=== PATIENT | female | born 1955 | race Caucasian/White ===

== ENCOUNTER 2018-01-27 12:56 | Emergency (ER) | payer MEDICAID, SELFPAY ==
[2018-01-27 13:03] VITALS: BP 105/89; PULSE 105; RESP 18; TEMP 37.4
[2018-01-27 13:42] LABS: HCT 35.3 % (36.0-46.0); HGB 11.8 g/dL (12.0-15.5); Mean Corp. HGB Concentration 33.4 g/dL (32.0-36.0); Mean Corpuscular Hemoglobin 29.8 pg (27.0-33.0); Mean Corpuscular Volume 89.1 fL (80-95); Mean Platelet Volume 9.1 fL (8.0-11.0); Platelet Count 252 x1000/uL (130-400); RBC 3.96 m/cumm (4.00-5.20); RBC Distribution Width 12.9 % (11.7-14.6)
[2018-01-27 13:52] VITALS: TEMP 37.3
[2018-01-27 13:53] LABS: BUN 11 mg/dL (7-18); CREATININE 0.99 mg/dL (0.55-1.02); Calcium 9.1 mg/dL (8.5-10.1); Chloride 99 mmol/L (98-107); Estimated GFR 56.84 (mL/min/1.73m2); Glucose 121 mg/dL (70-100); Potassium 3.2 mmol/L (3.5-5.1); Sodium 138 mmol/L (136-145)
[2018-01-27 14:05] LABS: Bilirubin Small (Negative); Blood Small (Negative); Clarity Cloudy; Glucose Negative (Negative); Ketones Negative (Negative); Leukocyte Esterase Moderate (Negative); Nitrite Positive (Negative); Specific Gravity 1.015 (1.005-1.025)
--- NOTE | 2018-01-27 14:22 | DI.CT_ITS ---
SYMPTOMS/DIAGNOSIS: ABDOMINAL PAIN WITH UTI AND EA CT SCAN OF THE ABDOMEN AND PELVIS: CT scan of the abdomen and pelvis was performed without intravenous or oral contrast material. Dependent atelectatic changes are seen in the lung bases. Lack of IV contrast does limit evaluation of the abdominal organs. There is a 2.9 x 2.3 cm round hypodense lesion in the posterior segment of the right lobe of the liver. It is indeterminate on this noncontrast examination. The liver is otherwise unremarkable. The gallbladder is negative. No biliary ductal dilatation is present. The unenhanced visualized portions of the spleen, pancreas and adrenal glands are unremarkable. The right kidney appears mildly enlarged. There is dilatation of the collecting system in its entirety. No stone is identified. There is a vascular calcification seen superior to the right renal pelvis. Stranding is seen around the kidney in the perinephric soft tissues. The left kidney also shows mild dilatation of the collecting system without stone. Mild stranding in the perinephric soft tissues is also noted. The urinary bladder is intact. The patient appears to be status post hysterectomy. The abdominal aorta is of normal caliber. No significant abdominal or pelvic adenopathy, ascites or pneumoperitoneum is seen. Note is made of a small fat- containing umbilical hernia. The bowel shows no evidence of obstruction or inflammation. No findings to suggest an acute appendicitis are present. Degenerative changes are seen in the spine. IMPRESSION: 1. Bilateral perinephric stranding and dilatation of the collecting systems. The primary diagnostic concern is for an ascending infection. Pyelonephritis cannot be excluded and should be considered. 2. A 2.9 cm round hypodense lesion in the posterior segment of the right lobe of the liver. The finding is indeterminate on this CT scan. Ultrasound may be considered for further evaluation. These findings were discussed with Dr. Marissa Sinha on the date of the examination.
[2018-01-27 14:23] LABS: C & S Indicated? Yes
[2018-01-27 14:24] LABS: WBC >50 HPF (0-5)
--- NOTE | 2018-01-27 14:28 | W.ED.GENAD ---
Medical Decision Making Urine is positive nitrite with WBC and bacteria. Will treat as uti with early pylo. Plan to establish IV and give Cipro IV and CT abdomen to evaluate for pylo and/or renal colic. Will give phenergan instead of Zofran do to the interaction with Cipro. Will give Toradol for pain. CT report given to Dr. Sinha. Reported to her was Pylonephritis, no stones. Incidental liver cyst noted and f/u recommended. I did apprise her of the liver cyst and recommended f/u. Her current PCP is in [facility]. She does ask to be put on local PCP list as she has moved to [place]. I advised if she wanted the live U/S sooner she should return to her current pcp. She would take it under advisement. I apprised her of the infection and the course of antibiotics needed. I did prescribe her Cipro and phenergan. I advised to return to ED if symptoms worsen and/or she can not keep antibiotics down. She agreed with POC. She reports to me she is feeling a little better after fluids and medications. HPI General Mode of arrival: ambulatory. Date/Time Provider Initiated Documentation: 01/27/18 13:12. Limitations to Documentation: no limitations. Information obtained by: patient. History of Present Illness 62 year old F presents to the emergency department with the chief complaint of UTI, described as moderate, Quality is described as burning and aching, and is localized to the back and abdomen (started 4 days ago. noticed mild back pain a day or two prior to that. Thought she may have a uti or stone. She also has cramping in the lower abdomen upper pelvis area. ). Patient reports no radiation. Patient started experiencing this day(s) (4) and it has been constant (diffuse over all of abdomen) and intermittent (cramping). No relieving factors improve symptom(s), No exacerbating factors reported . Patient notes fever/chills, headaches and nausea/vomiting. Patient did receive the following treatments prior to arrival, none Related Data Home Medications Medication Instructions Recorded Confirmed bupropion HCl 1 tab PO BID 01/27/18 01/27/18 ciprofloxacin HCl [Cipro] 500 mg PO BID #14 tab 01/27/18 lisinopril-hydrochlorothiazide 1 tab PO DAILY 09/24/18 09/24/18 lorazepam 1 mg PO DAILY 01/27/18 01/27/18 promethazine 12.5 mg PO Q6H PRN #10 tab 01/27/18 Previous Rx's Medication Instructions Recorded ciprofloxacin HCl [Cipro] 500 mg PO BID #14 tab 01/27/18 promethazine 12.5 mg PO Q6H PRN #10 tab 01/27/18 Allergies Allergy/AdvReac Type Severity Reaction Status Date / Time latex Allergy Unverified 01/27/18 15:48 Sulfa (Sulfonamide Allergy Unverified 01/27/18 15:48 Antibiotics) General Stated Complaint: Abd Prob MARIELENA: 3 Review of Systems Review of Systems Started with back pain and dysuria. Worsened to fever, chills, N/V, and abdominal pain. ENT Reports system reviewed and no additional complaints, except as docu Comments: Neck pain Cardiovascular Reports system reviewed and no additional complaints, except as docu Respiratory Reports system reviewed and no additional complaints, except as docu Gastrointestinal Reports abdominal pain, Denies melena, Denies bloating, Denies hematochezia, Reports change in bowel habits, Denies change in stool character, Denies coffee ground emesis, Reports constipation, Reports cramping, Denies diarrhea and Reports vomiting Genitourinary Denies hematuria, Reports dysuria, Reports pelvic pain and Reports flank pain Musculoskeletal Reports back pain Neurologic Reports system reviewed and no additional complaints, except as docu Psychiatric Reports system reviewed and no additional complaints, except as docu PFSH Social History Smoking/Tobacco Use Status: Never Exam [facility] Head: normal to inspection Ears: hearing grossly normal bilaterally General nose exam: external nose normal Mouth: moist mucous membranes Eyes General: appearance normal, both eyes and all related structures Neck Neck: normal visual inspection, full ROM, no lymphadenopathy, no meningeal signs, trachea midline and supple Resp Effort & Inspection: normal respiratory effort Auscultation: clear to auscultation bilaterally Cardio Jugular venous pressure: no JVD Rate: tachycardic Rhythm: regular rhythm Heart Sounds: S1 normal and S2 normal GI Inspection: normal to inspection and non-distended Palpation: soft and no hepatosplenomegaly Auscultation: normal bowel sounds General: No CVA tenderness Back/Spine/Pelvis Back: no CVA tenderness Skin General skin exam: turgor normal Neuro General: alert, awake, oriented x3 and gait normal Cognition: normal cognition Speech: speech normal Motor: muscle tone normal throughout Extrem General: normal to inspection Psych Appearance: grossly normal and well kempt Mental Status: mental status grossly normal Affect: normal affect Attitude: cooperative Course Vital Signs Temperature 37.4 C 01/27/18 13:03 Pulse 105 H 01/27/18 13:03 Respiratory Rate 18 01/27/18 13:03 Blood Pressure 105/89 01/27/18 13:03 Temperature 37.3 C 01/27/18 13:52 Temperature Source Temporal Artery Scan 01/27/18 13:52 Pulse 105 H 01/27/18 13:03 Respiratory Rate 18 01/27/18 13:03 Blood Pressure 105/89 01/27/18 13:03 Oxygen Delivery Method Room Air 01/27/18 13:03 Oxygen Flow Rate 0 01/27/18 13:03 Lab/Test Results Lab/Test Results: 01/27/18 13:30 Urine - Clean Catch Urine Culture - Pending Laboratory Tests Range/Units 01/27/18 01/27/18 01/27/18 13:24 13:24 13:30 WBC (4.4-10.8) k/cumm 12.40 H RBC (4.00-5.20) m/cumm 3.96 L Hgb (12.0-15.5) g/dL 11.8 L Hct (36.0-46.0) % 35.3 L MCV (80-95) fL 89.1 MCH (27.0-33.0) pg 29.8 MCHC (32.0-36.0) g/dL 33.4 RDW (11.7-14.6) % 12.9 Plt Count (130-400) x1000/uL 252 MPV (8.0-11.0) fL 9.1 Sodium (136-145) mmol/L 138 Potassium (3.5-5.1) mmol/L 3.2 L Chloride (98-107) mmol/L 99 Carbon Dioxide (21.0-32.0) mmol/L 29.0 Anion Gap (3-11) mmol/L 10.0 BUN (7-18) mg/dL 11 Creatinine (0.55-1.02) mg/dL 0.99 Estimated GFR/1.73 m2 (mL/min/1.73m2) 56.84 Glucose (70-100) mg/dL 121 H Calcium (8.5-10.1) mg/dL 9.1 Urine Color (Yellow) [place] Urine Clarity Cloudy Urine pH (5-8) 6.0 Ur Specific [place] (1.005-1.025) 1.015 Urine Protein (Negative) mg/dL 100 H Urine Ketones (Negative) mg/dL Negative Urine Blood (Negative) Small H Urine Nitrite (Negative) Positive H Urine Bilirubin (Negative) Small H Urine Urobilinogen (Up TO 0.2) EU/dL 4.0 H Ur Leukocyte Esterase (Negative) Moderate H Urine RBC Not Applicable Urine WBC (0-5) HPF >50 Ur Epithelial Cells Not Applicable Urine Crystals Not Applicable Urine Bacteria Not Applicable Urine Mucus Not Applicable Ur Culture Indicated? Yes Urine Glucose (Negative) mg/dL Negative Reviewed and patient treated for uti.
[2018-01-27] MEDS: CIPROFLOXACIN 400 MG/200 ML BAG 200 MG IVPB (14:56)
[2018-01-27] MEDS: Normal Saline 1,000 ML 1000 ML IV (14:56)
--- NOTE | 2018-01-27 14:59 | ED.GENADUL_ITS ---
Medical Decision Making Urine is positive nitrite with WBC and bacteria. Will treat as uti with early pylo. Plan to establish IV and give Cipro IV and CT abdomen to evaluate for pylo and/or renal colic. Will give phenergan instead of Zofran do to the interaction with Cipro. Will give Toradol for pain. CT report given to Dr. Sinha. Reported to her was Pylonephritis, no stones. Incidental liver cyst noted and f/u recommended. I did apprise her of the liver cyst and recommended f/u. Her current PCP is in [facility]. She does ask to be put on local PCP list as she has moved to [place]. I advised if she wanted the live U/S sooner she should return to her current pcp. She would take it under advisement. I apprised her of the infection and the course of antibiotics needed. I did prescribe her Cipro and phenergan. I advised to return to ED if symptoms worsen and/or she can not keep antibiotics down. She agreed with POC. She reports to me she is feeling a little better after fluids and medications. HPI General Mode of arrival: ambulatory . Date/Time Provider Initiated Documentation: 01/27/18 13:12 . Limitations to Documentation: no limitations . Information obtained by: patient . History of Present Illness 62 year old F presents to the emergency department with the chief complaint of UTI, described as moderate, Quality is described as burning and aching, and is localized to the back and abdomen (started 4 days ago. noticed mild back pain a day or two prior to that. Thought she may have a uti or stone. She also has cramping in the lower abdomen upper pelvis area. ). Patient reports no radiation. Patient started experiencing this day(s) (4) and it has been constant (diffuse over all of abdomen) and intermittent (cramping). No relieving factors improve symptom(s), No exacerbating factors reported . Patient notes fever/chills, headaches and nausea/vomiting. Patient did receive the following treatments prior to arrival, none Related Data Home Medications Medication Instructions Recorded Confirmed bupropion HCl 1 tab PO BID 01/27/18 01/27/18 ciprofloxacin HCl [Cipro] 500 mg PO BID #14 tab 01/27/18 lisinopril-hydrochlorothiazide 1 tab PO DAILY 09/24/18 09/24/18 lorazepam 1 mg PO DAILY 01/27/18 01/27/18 promethazine 12.5 mg PO Q6H PRN #10 tab 01/27/18 Previous Rx's Medication Instructions Recorded ciprofloxacin HCl [Cipro] 500 mg PO BID #14 tab 01/27/18 promethazine 12.5 mg PO Q6H PRN #10 tab 01/27/18 Allergies Allergy/AdvReac Type Severity Reaction Status Date / Time latex Allergy Unverified 01/27/18 15:48 Sulfa (Sulfonamide Allergy Unverified 01/27/18 15:48 Antibiotics) General Stated Complaint: Abd Prob MARIELENA: 3 Review of Systems Review of Systems Started with back pain and dysuria. Worsened to fever, chills, N/V, and abdominal pain. ENT Reports system reviewed and no additional complaints, except as docu Comments: Neck pain Cardiovascular Reports system reviewed and no additional complaints, except as docu Respiratory Reports system reviewed and no additional complaints, except as docu Gastrointestinal Reports abdominal pain, Denies melena, Denies bloating, Denies hematochezia, Reports change in bowel habits, Denies change in stool character, Denies coffee ground emesis, Reports constipation, Reports cramping, Denies diarrhea and Reports vomiting Genitourinary Denies hematuria, Reports dysuria, Reports pelvic pain and Reports flank pain Musculoskeletal Reports back pain Neurologic Reports system reviewed and no additional complaints, except as docu Psychiatric Reports system reviewed and no additional complaints, except as docu PFSH Social History Smoking/Tobacco Use Status: Never Exam [facility] Head: normal to inspection Ears: hearing grossly normal bilaterally General nose exam: external nose normal Mouth: moist mucous membranes Eyes General: appearance normal, both eyes and all related structures Neck Neck: normal visual inspection, full ROM, no lymphadenopathy, no meningeal signs , trachea midline and supple Resp Effort & Inspection: normal respiratory effort Auscultation: clear to auscultation bilaterally Cardio Jugular venous pressure: no JVD Rate: tachycardic Rhythm: regular rhythm Heart Sounds: S1 normal and S2 normal GI Inspection: normal to inspection and non-distended Palpation: soft and no hepatosplenomegaly Auscultation: normal bowel sounds General: No CVA tenderness Back/Spine/Pelvis Back: no CVA tenderness Skin General skin exam: turgor normal Neuro General: alert, awake, oriented x3 and gait normal Cognition: normal cognition Speech: speech normal Motor: muscle tone normal throughout Extrem General: normal to inspection Psych Appearance: grossly normal and well kempt Mental Status: mental status grossly normal Affect: normal affect Attitude: cooperative Course Vital Signs Temperature 37.4 C 01/27/18 13:03 Pulse 105 H 01/27/18 13:03 Respiratory Rate 18 01/27/18 13:03 Blood Pressure 105/89 01/27/18 13:03 Temperature 37.3 C 01/27/18 13:52 Temperature Source Temporal Artery Scan 01/27/18 13:52 Pulse 105 H 01/27/18 13:03 Respiratory Rate 18 01/27/18 13:03 Blood Pressure 105/89 01/27/18 13:03 Oxygen Delivery Method Room Air 01/27/18 13:03 Oxygen Flow Rate 0 01/27/18 13:03 Lab/Test Results Lab/Test Results: 01/27/18 13:30 Urine - Clean Catch Urine Culture - Pending Laboratory Tests Range/Units 01/27/18 01/27/18 01/27/18 13:24 13:24 13:30 WBC (4.4-10.8) k/cumm 12.40 H RBC (4.00-5.20) m/cumm 3.96 L Hgb (12.0-15.5) g/dL 11.8 L Hct (36.0-46.0) % 35.3 L MCV (80-95) fL 89.1 MCH (27.0-33.0) pg 29.8 MCHC (32.0-36.0) g/dL 33.4 RDW (11.7-14.6) % 12.9 Plt Count (130-400) x1000/uL 252 MPV (8.0-11.0) fL 9.1 Sodium (136-145) mmol/L 138 Potassium (3.5-5.1) mmol/L 3.2 L Chloride (98-107) mmol/L 99 Carbon Dioxide (21.0-32.0) mmol/L 29.0 Anion Gap (3-11) mmol/L 10.0 BUN (7-18) mg/dL 11 Creatinine (0.55-1.02) mg/dL 0.99 Estimated GFR/1.73 m2 (mL/min/1.73m2) 56.84 Glucose (70-100) mg/dL 121 H Calcium (8.5-10.1) mg/dL 9.1 Urine Color (Yellow) [place] Urine Clarity Cloudy Urine pH (5-8) 6.0 Ur Specific [place] (1.005-1.025) 1.015 Urine Protein (Negative) mg/dL 100 H Urine Ketones (Negative) mg/dL Negative Urine Blood (Negative) Small H Urine Nitrite (Negative) Positive H Urine Bilirubin (Negative) Small H Urine Urobilinogen (Up TO 0.2) EU/dL 4.0 H Ur Leukocyte Esterase (Negative) Moderate H Urine RBC Not Applicable Urine WBC (0-5) HPF >50 Ur Epithelial Cells Not Applicable Urine Crystals Not Applicable Urine Bacteria Not Applicable Urine Mucus Not Applicable Ur Culture Indicated? Yes Urine Glucose (Negative) mg/dL Negative Reviewed and patient treated for uti.
[2018-01-27 15:46] VITALS: BP 115/57; PULSE 89; RESP 16; TEMP 36.2; O2SAT 98
[2018-01-27] MEDS: Ketorolac 30 MG/ML VIAL IVP (15:57)
[2018-01-27 16:37] VITALS: BP 115/57; PULSE 89; RESP 16; TEMP 36.2; O2SAT 98
--- NOTE | 2018-01-28 09:01 | PDOC.ERCMPRO ---
Care Management Progress Note 01/28/18-Pt seen on 01/27/18 for UTI by Jon Molina DNP . Pt is new to the area. Referral faxed to [facility] as Rickey Camara was interface control officer for Pt to establish a PCP.
--- NOTE | 2018-01-28 09:02 | CMPROGNOTE_ITS ---
Care Management Progress Note 01/28/18-Pt seen on 01/27/18 for UTI by Jon Molina DNP . Pt is new to the area. Referral faxed to [facility] as Rickey Camara was air pollution engineer for Pt to establish a PCP.
== END 2018-01-27 16:42 | disposition home or self-care (01) ==
PROVIDERS: Emergency Provider Nurse Practitioner Family; PCP Family Medicine
DX: N10 Acute pyelonephritis (principal); B96.20 Unspecified Escherichia coli [E. coli] as the cause of diseases classified elsewhere
CPT/HCPCS: 36415; 80048; 85027; 87077; 96361; 96365; 96366; 96368; 96374; 99284; 74176; 81003; 81015; 87086; 87186; 99285; J0744; J1885

== ENCOUNTER 2019-10-27 09:11 | Outpatient (CLI) | payer OTHER, SELFPAY ==
[2019-10-28 02:51] LABS: COVID-19 RT-PCR UVMMC Result Negative (Negative)
== END 2019-10-27 09:31 ==
PROVIDERS: PCP Family Medicine; Visit Provider Family Medicine
DX: Z11.59 Encounter for screening for other viral diseases (principal)
CPT/HCPCS: U0003

== ENCOUNTER 2020-02-25 02:15 | Outpatient (CLI) | payer OTHER, SELFPAY ==
--- NOTE | 2020-02-25 07:45 | DI.MRI_ITS ---
EXAM: MR LOWER JOINT RT WO CLINICAL HISTORY: RT KNEE PAIN, TEAR LATERAL MENISCUS, [id number]. TECHNIQUE: Multiplanar multisequence MRI was performed. CR RT. KNEE from 11/19/2006 CR [id number] from 02/17/2019 FINDINGS: There is a small joint effusion and small Mario's cyst. There is edema in the prepatellar region. T here is no evidence of fracture or bone contusion. Anterior cruciate ligament is torn near the femora l attachment. This is present on the previous exam from 2006. The posterior cruciate ligament appears intact. There is edema around the lateral collateral ligament at the fibular attachment as well as s ome high signal in the distal hamstring tendon. The IT band and popliteus tendon appear intact. The m edial collateral ligament appears intact. There is spurring from the lateral femoral condyle and late ral tibial plateau. Both menisci are somewhat peripherally displaced, consistent with degenerative ch anges. There is some high signal in the body of the lateral meniscus at the periphery. There is some cartilage thinning and irregularity of the lateral femoral condyle cartilage. The patella is normally aligned. There is no patellofemoral cartilage thinning or focal defect. IMPRESSION: Sprains of the distal hamstring tendon and lateral collateral ligaments. Old ACL tear. Tear at the pe riphery of the body of the lateral meniscus. Mario's cyst. DATA REPOSITORY:
== END 2020-02-25 02:35 ==
PROVIDERS: PCP Family Medicine; Visit Provider Student in an Organized Health Care Education/Training Program
DX: S83.421A Sprain of lateral collateral ligament of right knee, initial encounter (principal); S83.261A Peripheral tear of lateral meniscus, current injury, right knee, initial encounter
CPT/HCPCS: 73721

== ENCOUNTER → 2020-04-11 13:28 | Outpatient (BNVA) | payer MEDICARE, OTHER, SELFPAY | PROVIDERS: PCP Family Medicine; Referring Provider Family Medicine; Visit Provider Student in an Organized Health Care Education/Training Program | DX: S83.281D Other tear of lateral meniscus, current injury, right knee, subsequent encounter (principal); X58.XXXD Exposure to other specified factors, subsequent encounter; I10 Essential (primary) hypertension | CPT/HCPCS: 99214 ==

== ENCOUNTER 2020-04-15 03:48 | Outpatient (CLI) | payer MEDICARE, OTHER, SELFPAY ==
[2020-04-17 16:51] LABS: COVID-19 RT-PCR Result NEGATIVE (Negative)
== END 2020-04-15 04:08 ==
PROVIDERS: PCP Family Medicine; Visit Provider Student in an Organized Health Care Education/Training Program
DX: Z11.59 Encounter for screening for other viral diseases (principal); Z01.818 Encounter for other preprocedural examination
CPT/HCPCS: U0003

== ENCOUNTER 2020-04-19 05:59 | Day surgery (SDC) | payer MEDICARE, OTHER, SELFPAY ==
[2020-04-19] VITALS (7 sets, daily range): BP systolic 129–142; BP diastolic 58–89; PULSE 68–79; RESP 8–22; TEMP 36.1–36.6; O2SAT 97–100
[2020-04-19] MEDS: Lactated Ringers 1,000 ML 80 ML IV (06:50)
[2020-04-19] MEDS: Celecoxib 200 MG CAP 400 MG PO (07:00)
[2020-04-19] MEDS: Acetaminophen 500 MG TAB 1000 MG PO (07:00)
[2020-04-19] MEDS: ceFAZolin 2 GM/50 ML BAG IVPB (07:30)
--- NOTE | 2020-04-19 07:43 | PDOC.DSDIS_ITS ---
Discharge Plan Disposition Patient Disposition: HOME Condition: Good Discharge Details Reason For Visit: Right knee arthroscopy Attending Provider: Geovanny Gutierrez Primary Care Provider: Heike Graham Home Meds and New Rx's Prescriptions: New hydrocodone-acetaminophen 5-325 mg tablet 1 tab PO Q6H PRN (Reason: pain) Qty: 10 RF: 0 ibuprofen 600 mg tablet 600 mg PO TID PRN (Reason: pain) Qty: 30 RF: 0 acetaminophen 500 mg capsule 500 mg PO Q4H PRN (Reason: pain) Qty: 30 RF: 0 Continued hydroxyzine HCl 25 mg tablet 25 mg PO QHS RF: 0 hydrochlorothiazide 25 mg tablet 25 mg PO DAILY RF: 0 magnesium glycinate 100 mg tablet 400 mg PO BID RF: 0 cholecalciferol (vitamin D3) 50 mcg (2,000 unit) capsule 50 mcg PO DAILY RF: 0 calcium citrate 200 mg (950 mg) tablet 200 mg PO DAILY RF: 0 (DME) Raised Toilet Seat See Rx Instructions .ROUTE .MEDSUPPLY Qty: 1 RF: 0 bupropion HCl 100 mg Tablet 1 tab PO BID RF: 0 lorazepam 1 mg Tablet 1 mg PO DAILY RF: 0 Discontinued naproxen 500 mg tablet 500 mg PO BID RF: 0 Discharge Instructions Stand Alone Forms: [facility] Knee Arthroscopy Referrals: Geovanny Gutierrez MD [ [facility] STAFF PHYSICIAN] - Equipment/Supplies: Partial Weight Bearing Crutches Activity:: Activity as Tolerated Remove Dressings/Wound Care:: 72 hours Shower/Bathe:: 72 hours Diet:: As Tolerated Discharge Orders Discharge Orders: Discharge Order (Routine); Ordered 04/19/20 Ordered By: Prasad Beck DS: Diagnosis Discharge Diagnosis (1) Tear of lateral meniscus of right knee, current: Status: Acute
[2020-04-19] MEDS: EPINEPHrine 30 MG/30 ML VIAL (07:55)
[2020-04-19] MEDS: Bupivacaine 0.5% Pres-Free 30 ML VIAL (07:56)
[2020-04-19] MEDS: HYDROcodone 5/Acetaminophen 325 TAB PO ×2 (09:05→10:06)
--- NOTE | 2020-04-19 15:13 | W.PM.OP ---
Date of service: 04/19/20 Time of Service: 08:13 Operative Note Operative Note DATE OF PROCEDURE: 04/19/20 PRE-OP DIAGNOSIS: Right Lateral Meniscus Tear POST-OP DIAGNOSIS: same PROCEDURE: Arthroscopic Partial Lateral Menisectomy - Right Knee SURGEON: Geovanny Gutierrez ANESTHESIA: GETA ESTIMATED BLOOD LOSS: 0 PATHOLOGY: none sent TOURNIQUET TIME: 0 COMPLICATIONS: None Patient was transported to: PACU Patient's condition: stable Indications: I have seen Nazanin in clinic for symptoms of a meniscus tear. This was confirmed based on MRI and exam findings. Nonoperative measures were exhausted but disability and pain persisted. I discussed knee arthroscopy with meniscal intervention with the patient. I reviewed the risks of the procedure to include, but not limited to, bleeding, infection, pain, stiffness, damage to nerves or vessels, recurrence, blood clot. Despite these risks, the patient elected to proceed. 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 The consent was reviewed with the patient and signed. The history and physical was updated. All questions were answered. She was taken back to the operating room. The patient was placed into the supine position on the operating room table. A nonsterile tourniquet was placed high onto the leg but not used. All bony prominences were well padded. Prophylactic antibiotics in the form of Cefazolin were administered. The right leg was then prepped with Chloraprep and draped in a standard fashion with stockinette and extremity drape. A timeout to confirm correct identity, side and site, procedure, allergies, anesthesia, and medical concerns was performed. The leg was placed into a pneumatic leg espinal, [id number]. A standard lateral portal was made at the lateral border of the patella tendon in line with the inferior pole of the patella, soft spot. The skin and deep tissue was incised sharply and the blunt trochar was inserted atraumatically. A diagnostic arthroscopy was performed and the findings are listed above. The suprapatellar pouch had no significant inflammatory change. The patellofemoral articulation showed minimal chondral damage of the trochlea as well as good tracking. The lateral gutter had no loose bodies and the medial gutter had no loose bodies. The knee was brought into some valgus stress in extension to open the medial compartment. A medial portal was made, localized by a spinal needle. The portal was created with an #11 blade through skin and capsule under direct visualization avoiding any meniscal injury. A probe was then inserted into the medial compartment. The medial compartment was fully inspected. There was no significant cartilage damage in the medial compartment. The medial meniscus had no meniscal tear. The notch was then inspected which showed a torn ACL and an intact PCL. The leg was then brought into a figure of 4 position. The lateral compartment was fully inspected with the arthroscope and a probe. The chondral surface of the tibia showed minimal chondromalacia and the surface of the femur showed Grade II chondromalacia with some fissuring (focal Grade III). The lateral meniscus had a complex meniscal tear with a significant horizontal component with displacement. After evaluation, the meniscus was debrided down to a stable base using a series of biters and arthroscopic yaritza. It was probed afterwards to confirm that the tear had been removed and the meniscus was stable. The arthroscope was brought back into the suprapatellar pouch and the leg was in full extension. The knee was thoroughly irrigated with the arthroscopic fluid on high flow and pressure. Inflow was stopped and excess fluid was removed. The wounds were closed with 4-0 Nylon. They were dressed with Xeroform, 4x4 gauze, ABD pad, Kerlix and an MOJGAN wrap. A cryo-cuff was applied. The patient tolerated the procedure well and was returned to the Same Day Surgery area in a stable condition suffering no known complication.
== END 2020-04-19 11:18 | disposition home or self-care (01) ==
PROVIDERS: PCP Family Medicine; Visit Provider Student in an Organized Health Care Education/Training Program
PROC: (CPT 29870; principal; 2020-04-19 07:30)
DX: M23.261 Derangement of other lateral meniscus due to old tear or injury, right knee (principal); M94.261 Chondromalacia, right knee
CPT/HCPCS: 29881; E0114; J0131; J0690; J1100; J1200; J1885; J2001; J2250; J2405

== ENCOUNTER → 2020-06-20 13:09 | Outpatient (BNVA) | payer MEDICARE, OTHER, SELFPAY | PROVIDERS: PCP Family Medicine; Referring Provider Family Medicine; Visit Provider Student in an Organized Health Care Education/Training Program | DX: Z47.89 Encounter for other orthopedic aftercare (principal) ==

== ENCOUNTER → 2020-08-08 13:10 | Outpatient (BNVA) | payer MEDICARE, OTHER, SELFPAY | PROVIDERS: PCP Family Medicine; Referring Provider Family Medicine; Visit Provider Student in an Organized Health Care Education/Training Program | DX: Z47.89 Encounter for other orthopedic aftercare (principal); M25.561 Pain in right knee | CPT/HCPCS: 20610; J1040 ==

== ENCOUNTER 2020-11-03 10:40 | Outpatient (CLI) | payer MEDICARE, OTHER, SELFPAY ==
--- NOTE | 2020-11-03 08:30 | DI.RAD_ITS ---
Exam(s) XR KNEE RT 4V AP,LAT,ISAI,PAT EXAM: XR KNEE RT 4V AP,LAT,ISAI,PAT CLINICAL HISTORY: f/u right knee. TECHNIQUE: 2D digital imaging was performed. COMPARISON: CR [id number] from 02/17/2019 FINDINGS: There is no evidence of fracture but there does appear to be a joint effusion. Narrowing of the late ral joint space is noted. On 1 image there is a subtle suggestion of a possible XXXX loose intra-art icular body in the intercondylar notch. IMPRESSION: DATA REPOSITORY: RADIATION DOSE DELIVERED:
== END 2020-11-03 10:41 | disposition home or self-care (01) ==
LOC: DIORS 10:41
PROVIDERS: PCP Family Medicine; Referring Provider Family Medicine; Visit Provider Student in an Organized Health Care Education/Training Program
DX: Z47.89 Encounter for other orthopedic aftercare (principal); M17.11 Unilateral primary osteoarthritis, right knee; M25.461 Effusion, right knee
CPT/HCPCS: 99213; 73564

== ENCOUNTER → 2020-11-10 08:00 | Outpatient (BNVA) | payer MEDICARE, OTHER, SELFPAY | PROVIDERS: PCP Family Medicine; Referring Provider Family Medicine; Visit Provider Physician Assistant Surgical | DX: M17.11 Unilateral primary osteoarthritis, right knee (principal) | CPT/HCPCS: 20610; J1040 ==

== ENCOUNTER → 2021-01-16 15:20 | Outpatient (BNVA) | payer MEDICARE, OTHER, SELFPAY | PROVIDERS: PCP Family Medicine; Referring Provider Family Medicine; Visit Provider Student in an Organized Health Care Education/Training Program | DX: M17.11 Unilateral primary osteoarthritis, right knee (principal) | CPT/HCPCS: 20610; J7325 ==